=== PATIENT | female | born 1930 | race Caucasian/White ===

== ENCOUNTER 2017-07-31 16:51 | Inpatient (IN) | payer OTHER, MEDICARE ==
[~2017-07-31] VITALS: Ht 154.9 cm; Wt 61.2 kg
--- NOTE | ~2017-07-31 | HC ---
[facility] [place] [address] CONSULTATION Name: TRACIBRIGIDACASEY Room #: 446-P [facility] IN M.R.#: [id number] Admission: 07/31/17 Attend Phys: Linwood Jack DO Discharge: 08/05/17 Date of : [birth year] Report #: [id number] THIS REPORT FOR: //name// CC: Linwood Jack NO PCP DATE OF SERVICE: 08/02/2017 HISTORY OF PRESENT ILLNESS: The patient is an 87-year-old white female who was admitted after a fall. She apparently has had multiple noninjury falls. She has been diagnosed with urinary tract infection, started on IV antibiotics. She does have some weakness and apparently was choking on food. She was seen by speech therapy and they cleared her for a mechanical soft all liquid diet. She needs encouragement as far as eating. CT of the head was negative. There is a note of some dementia. Geriatrics is involved as well as Gastroenterology. We are seeing her in rehabilitation medicine consultation. PAST SURGICAL HISTORY: Includes colon surgery blockage with colon resection, appendectomy, cataract, left eye. ALLERGIES: No known drug allergies. MEDICATIONS: Please see the full medication listing. HABITS: No history of tobacco or alcohol abuse. SOCIAL HISTORY: Lives in an independent living apartment at [facility] with her . She used a cane to get around and notes she may warrant a walker. No steps. REVIEW OF SYSTEMS: No current complaints of chest pain, shortness of breath or abdominal discomfort. PHYSICAL EXAMINATION: GENERAL: An 87-year-old white female, in no obvious distress. VITAL SIGNS: Last recorded temperature 97.8, pulse 60, respirations 18, blood pressure 175/54. NEUROLOGIC: She is alert and oriented, but tends to defer to her for more complex questions. Facies are symmetric. She has functional range of motion of both upper extremities with strength grade 4-/5. DTRs are trace to 1. Lower extremities functional range of motion with strength grade 4-/5. DTRs are trace to 1. She is able to sit to stand with contact guard and ambulated 250 feet contact guard with a front-wheeled walker. ASSESSMENT: An 87-year-old white female with the following problem list: 1. Generalized weakness. [address] [address] CONSULTATION Name: CASEY KLEIN Room #: 446-P [facility] IN M.R.#: [id number] Admission: 07/31/17 Attend Phys: Linwood Jack DO Discharge: 08/05/17 Date of : [birth year] Report #: [id number] 2. Urinary tract infection. 3. Dehydration. 4. History of falls. These sound like mechanical falls and contributory by her dehydration, UTI, and generalized weakness. 5. History of dementia. PLAN: I do not see that she would meet criteria for an acute [address] [place] [address] inpatient rehabilitation stay. Would agree with going to the residential facility at [facility] as is being considered. Thank you for asking us to assist in this patient's care. <ELECTRONICALLY SIGNED> By: Gentry Prado MD 08/13/17 1030 1548 0243 Gentry Prado MD /nt
--- NOTE | ~2017-07-31 | EKG ---
[place] [address] 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
[~2017-07-31 16:51] MED LIST: CIPROFLOXACIN500 M1 PO; NORCO 5-325 TA1 EACH PO
[2017-07-31 16:52] VITALS: BP 132/45
[2017-07-31] MEDS ORDERED: CARVEDILOL6.25 MG (16:56)
[2017-07-31] MEDS ORDERED: TOVIAZ4 M1 PO (16:56)
[2017-07-31] MEDS ORDERED: SIMVASTATIN40 MG PO (16:56)
[2017-07-31] MEDS ORDERED: LISINOPRIL5 MG PO (16:56)
[2017-07-31] MEDS ORDERED: LASIX 40 MG TAB40 M2 PO (16:56)
[2017-07-31] MEDS ORDERED: RAZADYNE4 MG PO (16:57)
[2017-07-31 17:10] LABS: HEMATOCRIT 42.2 % (37.0-47.0); HEMOGLOBIN 14.4 gm/dL (12.0-15.0); MCH 31.7 pg (26.0-34.0); MCHC 34.1 g/dL (28.0-37.0); MCV 93.1 fL (80.0-100.0); PLATELET COUNT 180 thou/uL (150-400); RBC 4.54 mil/uL (4.20-5.00); RDW 13.6 % (10.5-14.5); WBC 9.1 thou/uL (4.0-11.0)
[2017-07-31 17:19] LABS: ANION GAP 11 mmol/L (7-16); BUN 38 mg/dL (7-18); CALCIUM 10.2 mg/dL (8.5-10.1); CHLORIDE 105 mmol/L (98-107); CO2 25 mmol/L (21-32); CREATININE 1.6 mg/dL (0.6-1.0); GLUCOSE 144 mg/dL (74-106); POTASSIUM 4.3 mmol/L (3.5-5.1); SODIUM 141 mmol/L (136-145)
[2017-07-31 17:27] LABS: ALBUMIN 3.7 g/dL (3.4-5.0); MAGNESIUM 2.2 mg/dL (1.8-2.4); SGOT 22 U/L (15-37); SGPT 30 U/L (30-65); TOTAL BILIRUBIN 0.3 mg/dL (<0.1-1.0); TOTAL PROTEIN 7.4 g/dL (6.4-8.2); TROPONIN-I < 0.04 ng/mL (<0.06)
[2017-07-31 17:35] LABS: ABSOLUTE NEUTROPHILS 5.2 thou/uL (1.4-8.2); ANISOCYTOSIS 1+; POLYCHROMASIA OCCASIONAL
[2017-07-31 18:31] LABS: URINE BILIRUBIN NEGATIVE (Negative); URINE BLOOD NEGATIVE (Negative); URINE CLARITY CLEAR; URINE COLOR YELLOW; URINE GLUCOSE-RANDOM* NEGATIVE (Negative); URINE KETONES NEGATIVE (Negative); URINE LEUKOCYTES-REFLEX NEGATIVE (Negative); URINE NITRITE-REFLEX POSITIVE (Negative); URINE PROTEIN (DIPSTICK) NEGATIVE (Negative); URINE UROBILINOGEN 0.2 E.U./dl (0.2-1.0)
[2017-07-31 18:43] LABS: BACTERIA-REFLEX >30 Many /HPF (None Seen); SQUAMOUS 0-3 Few /LPF (0-3); URINE RBC None Seen /HPF (0-2); URINE WBC-REFLEX 0-5 Rare /HPF (0-5)
[2017-07-31 18:44] LABS: AMORPHOUS URATES Moderate /LPF (None Seen); HYALINE CASTS >10 Many /LPF (None Seen)
[2017-07-31 18:54] VITALS: BP 139/54
[2017-07-31 19:27] VITALS: BP 139/54
[2017-07-31 19:50] VITALS: BP 150/62
[2017-08-01 03:52] VITALS: BP 168/69
[2017-08-01 05:51] LABS: ABSOLUTE NEUTROPHILS 4.5 thou/uL (1.4-8.2); BASOPHILS 0.4 % (0.0-2.0); EOSINOPHILS 1.7 % (0.0-3.0); HEMATOCRIT 41.4 % (37.0-47.0); LYMPHOCYTES 24.3 % (24.0-44.0); MCH 31.5 pg (26.0-34.0); MCHC 33.8 g/dL (28.0-37.0); MCV 92.9 fL (80.0-100.0); MONOCYTES 11.6 % (1.0-8.0); PLATELET COUNT 169 thou/uL (150-400); RBC 4.46 mil/uL (4.20-5.00); RDW 13.2 % (10.5-14.5); WBC 7.3 thou/uL (4.0-11.0)
[2017-08-01 06:04] LABS: CALCIUM 9.6 mg/dL (8.5-10.1); CREATININE 1.2 mg/dL (0.6-1.0)
[2017-08-01 08:27] VITALS: BP 154/64
[2017-08-01 09:15] LABS: CHOLESTEROL 170 mg/dL (<200); HDL CHOLESTEROL 34 mg/dL (>40); LDL CHOLESTEROL 110 mg/dL (<100); PHOSPHORUS 3.5 mg/dL (2.5-4.9); TRIGLYCERIDE 132 mg/dL (<150); VLDL 26 mg/dL (<40)
[2017-08-01 16:17] VITALS: BP 179/62
[2017-08-01 21:19] VITALS: BP 167/67
[2017-08-02 03:55] VITALS: BP 169/68
[2017-08-02 05:18] LABS: ABSOLUTE NEUTROPHILS 5.1 thou/uL (1.4-8.2); BASOPHILS 0.3 % (0.0-2.0); EOSINOPHILS 0.5 % (0.0-3.0); HEMATOCRIT 40.7 % (37.0-47.0); HEMOGLOBIN 13.7 gm/dL (12.0-15.0); LYMPHOCYTES 26.7 % (24.0-44.0); MCH 31.2 pg (26.0-34.0); MCHC 33.6 g/dL (28.0-37.0); MCV 92.7 fL (80.0-100.0); MONOCYTES 11.5 % (1.0-8.0); PLATELET COUNT 177 thou/uL (150-400); WBC 8.4 thou/uL (4.0-11.0)
[2017-08-02 05:24] LABS: CALCIUM 9.3 mg/dL (8.5-10.1); CREATININE 1.1 mg/dL (0.6-1.0); POTASSIUM 3.6 mmol/L (3.5-5.1)
[2017-08-02 08:33] VITALS: BP 175/54
[2017-08-02 16:34] VITALS: BP 194/62
[2017-08-02 19:09] VITALS: BP 215/83
[2017-08-02 22:15] VITALS: BP 186/69
[2017-08-03 03:05] VITALS: BP 166/62
[2017-08-03 08:00] VITALS: BP 162/62
[2017-08-03 16:00] VITALS: BP 145/52
[2017-08-03 19:25] VITALS: BP 117/45
[2017-08-04 05:09] VITALS: BP 150/58
[2017-08-04 05:34] LABS: BASOPHILS 0.4 % (0.0-2.0); EOSINOPHILS 0.9 % (0.0-3.0); HEMATOCRIT 37.6 % (37.0-47.0); HEMOGLOBIN 12.6 gm/dL (12.0-15.0); LYMPHOCYTES 24.2 % (24.0-44.0); MCHC 33.5 g/dL (28.0-37.0); MCV 92.5 fL (80.0-100.0); MONOCYTES 6.5 % (1.0-8.0); PLATELET COUNT 162 thou/uL (150-400); RBC 4.06 mil/uL (4.20-5.00); RDW 12.9 % (10.5-14.5); WBC 13.3 thou/uL (4.0-11.0)
[2017-08-04 05:35] LABS: CREATININE 1.1 mg/dL (0.6-1.0); POTASSIUM 3.2 mmol/L (3.5-5.1)
[2017-08-04 08:00] VITALS: BP 172/50
[2017-08-04 16:00] VITALS: BP 171/42
[2017-08-04 21:38] VITALS: BP 177/51
[2017-08-05 03:18] VITALS: BP 186/73
[2017-08-05 05:32] LABS: ABSOLUTE NEUTROPHILS 7.1 thou/uL (1.4-8.2); BASOPHILS 0.5 % (0.0-2.0); EOSINOPHILS 1.5 % (0.0-3.0); HEMOGLOBIN 13.5 gm/dL (12.0-15.0); LYMPHOCYTES 24.6 % (24.0-44.0); MCH 31.2 pg (26.0-34.0); MCHC 33.7 g/dL (28.0-37.0); MCV 92.6 fL (80.0-100.0); MONOCYTES 8.2 % (1.0-8.0); PLATELET COUNT 182 thou/uL (150-400); POLYS 65.2 % (36.0-66.0); RBC 4.32 mil/uL (4.20-5.00)
[2017-08-05 05:42] LABS: CALCIUM 9.3 mg/dL (8.5-10.1); CREATININE 0.9 mg/dL (0.6-1.0); POTASSIUM 3.7 mmol/L (3.5-5.1)
[2017-08-05 08:00] VITALS: BP 198/61
[2017-08-05 09:18] VITALS: BP 186/73
[2017-08-05] MEDS ORDERED: ERGOCALCIF50000 UNIT PO (11:26)
[2017-08-05] MEDS ORDERED: CIPROFLOXACIN500 M1 PO ×2 (11:26→13:41)
[2017-08-05] MEDS ORDERED: SINEMET 10-1001 EAC1 PO (11:26)
[2017-08-05] MEDS ORDERED: SYNTHROID50 MCG PO (11:26)
[2017-08-05] MEDS ORDERED: B12INJ IM (11:26)
[2017-08-05] MEDS ORDERED: FEVERALL650 MG RECTAL (11:26)
== END 2017-08-05 14:45 | DRG 70 ==
LOC: ER 16:51 → 4S 19:27
PROVIDERS: Emergency Medicine; Family Medicine; Registered Nurse
DX: G93.40 Encephalopathy, unspecified (principal); N17.0 Acute kidney failure with tubular necrosis; N39.0 Urinary tract infection, site not specified; I10 Essential (primary) hypertension; E86.0 Dehydration; F03.90 Unspecified dementia, unspecified severity, without behavioral disturbance, psychotic disturbance, mood disturbance, and anxiety; M62.84 Sarcopenia; E03.9 Hypothyroidism, unspecified; R13.10 Dysphagia, unspecified; W18.30XA Fall on same level, unspecified, initial encounter; Y93.89 Activity, other specified; Y92.89 Other specified places as the place of occurrence of the external cause; Y99.8 Other external cause status; Z90.49 Acquired absence of other specified parts of digestive tract; Z98.42 Cataract extraction status, left eye; Z79.899 Other long term (current) drug therapy
CPT/HCPCS: 10100

== ENCOUNTER 2017-09-27 12:28 | Emergency (ER) | payer OTHER, MEDICARE ==
[~2017-09-27] VITALS: Ht 152.4 cm; Wt 59.0 kg
--- NOTE | ~2017-09-27 | EKG ---
[address] [place] [address] ELECTROCARDIOGRAM REPORT Name: TRACIBRIGIDACASEY Room #: [facility]#: [id number] Admission: 09/27/17 Attend Phys: Discharge: 09/27/17 Date of : [birth year] Report #: [id number] THIS REPORT FOR: //name// [facility] ED Test Date: 2017-09-27 Test Time: 13:35:17 Pat Name: CASEY KLEIN Department: Room: Gender: F [employer]ing [employer] Operator: as : 1930 Requested By: Ryley Cruz Order Number: [id number] MD: Lc Mejía Measurements Intervals [place] Rate: 60 P: 33 AK: 193 QRS: -36 QRSD: 156 T: 77 QT: 525 QTc: 525 Interpretive Statements Sinus rhythm Left bundle branch block Compared to ECG 07/31/2017 17:01:48 No significant changes Electronically Signed On 09-27-2017 16:55:23 CDT by Lc Mejía [email or web address] <ELECTRONICALLY SIGNED> By: Lc Mejía MD, [facility] 09/27/17 1655 1335 Lc Mejía MD, FACC /EPI
[~2017-09-27 12:28] MED LIST changes: +B12INJ IM; +CARVEDILOL6.25 MG; +ERGOCALCIF50000 UNIT PO; +FEVERALL650 MG RECTAL; +LASIX 40 MG TAB40 M2 PO; +LISINOPRIL5 MG PO; +RAZADYNE4 MG PO; +SIMVASTATIN40 MG PO; +SINEMET 10-1001 EAC1 PO; +SYNTHROID50 MCG PO; +TOVIAZ4 M1 PO
[2017-09-27 13:48] LABS: BASOPHILS 1.3 % (0.0-2.0); EOSINOPHILS 0.7 % (0.0-3.0); HEMOGLOBIN 13.6 gm/dL (12.0-15.0); LYMPHOCYTES 41.6 % (24.0-44.0); MCH 31.2 pg (26.0-34.0); MCHC 33.9 g/dL (28.0-37.0); MONOCYTES 8.2 % (1.0-8.0); PLATELET COUNT 169 thou/uL (150-400); POLYS 48.2 % (36.0-66.0); RBC 4.34 mil/uL (4.20-5.00); RDW 13.1 % (10.5-14.5); WBC 10.3 thou/uL (4.0-11.0)
[2017-09-27 13:53] LABS: ANION GAP 8 mmol/L (7-16); BUN 26 mg/dL (7-18); CALCIUM 9.4 mg/dL (8.5-10.1); CHLORIDE 106 mmol/L (98-107); CO2 24 mmol/L (21-32); CREATININE 1.1 mg/dL (0.6-1.0); GLUCOSE 104 mg/dL (74-106); POTASSIUM 5.1 mmol/L (3.5-5.1); SODIUM 138 mmol/L (136-145)
[2017-09-27 14:03] LABS: TROPONIN-I < 0.04 ng/mL (<0.06)
== END 2017-09-27 14:42 | disposition home or self-care (01) ==
LOC: ER 12:28
PROVIDERS: Physician Assistant
DX: I95.9 Hypotension, unspecified (principal); Z90.49 Acquired absence of other specified parts of digestive tract

== ENCOUNTER 2018-02-14 14:24 | Inpatient (IN) | payer OTHER, MEDICARE ==
[~2018-02-14] VITALS: Ht 154.9 cm; Wt 64.5 kg
--- NOTE | ~2018-02-14 | HC ---
[facility] [place] [address] CONSULTATION Name: CASEY KLEIN Room #: 430-P [facility] IN M.R.#: [id number] Admission: 02/14/18 Attend Phys: Karthikeyan Coley MD Discharge: 02/20/18 Date of : [birth year] Report #: [id number] THIS REPORT FOR: //name// CC: Rakan Coley DATE OF SERVICE: 02/17/2018 HISTORY OF PRESENT ILLNESS: The patient is an 87-year-old white female with history of Parkinson's disease, on Sinemet; premorbid ambulator, utilized a cane, who slipped and fell onto the left side of her chest and pelvis. She was admitted, diagnosed with a left pubic ramus fracture, nondisplaced superior pubic ramus, is allowed weightbearing as tolerated as per Dr. Steven in Orthopedics. 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 She was also diagnosed with urinary tract infection. We are seeing her in rehabilitation medicine consultation. PAST MEDICAL HISTORY: Includes pulmonary hypertension and CHF. PAST SURGICAL HISTORY: She had prior colon surgery for colon resection. She had an appendectomy. She has cataract, left eye. MEDICATIONS: Please see the full medication listing. This is noted to include vitamins, herbals, and supplements. ALLERGIES: No known drug allergies. SOCIAL HISTORY: She lives in an apartment at [facility] with her , he has still been working. She is noted to utilize a cane. REVIEW OF SYSTEMS: She did not offer any current complaints of chest pain, shortness of breath, or abdominal discomfort. She is noted to have significant pain complaints regarding the left pelvic area. PHYSICAL EXAMINATION: GENERAL: An 87-year-old white female, she is sleepy, in no obvious distress. VITAL SIGNS: Last recorded temperature is 99.1, pulse is 74, respirations are 18, and blood pressure is 134/57. The patient is sleepy as noted above. NEUROLOGIC: Facies appeared symmetric. Functional range of motion of both upper extremities. Lower extremities, no focal calf swelling. Tone appeared to be intact. She has discomfort as expected. She is moving the left lower extremity. She was noted to have anticipatory pain by physical therapy and severe pain in left groin with any movement. She has been unable to sit at the edge of the bed, yet in therapy. ASSESSMENT: An 87-year-old white female with the following problem list: [address] [address] CONSULTATION Name: CASEY KLEIN Anjelica Room #: 430-P [facility] IN .R.#: [id number] Admission: 02/14/18 Attend Phys: Karthikeyan Coley MD Discharge: 02/20/18 Date of : [birth year] Report #: [id number] 1. Left pubic ramus fracture, nondisplaced with limited tolerance. 2. History of Parkinson's disease, on Sinemet. 3. Urinary tract infection. 4. Hypertension. 5. Pulmonary hypertension. 6. Overactive bladder. 7. Deep venous thrombosis prophylaxis. PLAN: The patient does not have the tolerance for an acute [address] [place] [address] inpatient rehabilitation stay. Would agree with [facility] facility transfer when medically cleared. desires for her to go to the [facility] nursing [facility]. Thank you for asking us to assist in this patient's care. <ELECTRONICALLY SIGNED> By: Gentry Prado MD 02/28/18 1220 1208 0042 Gentry Prado MD /[facility]
--- NOTE | ~2018-02-14 | HC ---
[facility] [place] [address] CONSULTATION Name: TRACIBRIGIDACASEY Room #: 432-P [facility] IN M.R.#: [id number] Admission: 02/14/18 Attend Phys: Karthikeyan Coley MD Discharge: Date of : [birth year] Report #: [id number] THIS REPORT FOR: //name// CC: Rakan Coley DATE OF SERVICE: 02/15/2018 CHIEF COMPLAINT: Left pubic ramus fracture. HISTORY OF PRESENT ILLNESS: This frail 87-year-old female has been ambulatory, but fell injuring her left chest wall and left hip. X-rays confirm a nondisplaced fracture at the superior pubic ramus. There is moderate degenerative arthritis of the left hip, but no evidence of a new proximal femur fracture. At the time of my evaluation, she is somewhat anxious and mildly confused. She notes some discomfort along the left chest wall and left flank, but most discomfort about the left hip. She has limited range of motion of left hip due to her subjective complaints. There is no obvious shortening or rotational deformity. X-rays of the pelvis reveal a nondisplaced fracture at the superior pubic ramus entering the medial aspect of the acetabulum. There is no significant displacement of the acetabular joint surface. There is degenerative change at the joint, but no evidence of a proximal femur fracture. IMPRESSION: In general summary, this patient has a stable periacetabular superior pubic ramus fracture. I feel she can be mobilized and can bear weight as comfort allows. I expect she will have difficulty given her age and frail state. Pending this, she may be able to be discharged home with assistance or may require an extended care facility for more extensive assistance. I would not anticipate the need for any surgical intervention. Thank you for allowing me to participate in her care. <ELECTRONICALLY SIGNED> By: Gentry Steven MD 02/18/18 1241 1202 Gentry Steven MD /nt
[2018-02-14 14:26] VITALS: BP 188/72
[2018-02-14 15:07] LABS: HEMATOCRIT 37.2 % (37.0-47.0); HEMOGLOBIN 12.9 gm/dL (12.0-15.0); MCHC 34.7 g/dL (28.0-37.0); MCV 92.1 fL (80.0-100.0); RBC 4.04 mil/uL (4.20-5.00); RDW 12.6 % (10.5-14.5); WBC 9.9 thou/uL (4.0-11.0)
[2018-02-14 15:14] LABS: CALCIUM 10.2 mg/dL (8.5-10.1); CREATININE 1.1 mg/dL (0.6-1.0); POTASSIUM 4.4 mmol/L (3.5-5.1)
[2018-02-14 15:44] LABS: URINE BILIRUBIN NEGATIVE (Negative); URINE BLOOD 2+ (Negative); URINE CLARITY CLOUDY; URINE COLOR BROWN; URINE GLUCOSE-RANDOM* NEGATIVE (Negative); URINE KETONES NEGATIVE (Negative); URINE NITRITE-REFLEX NEGATIVE (Negative); URINE PROTEIN (DIPSTICK) NEGATIVE (Negative); URINE SPECIFIC GRAVITY 1.015 (1.005-1.035); URINE UROBILINOGEN 0.2 E.U./dl (0.2-1.0)
[2018-02-14 15:45] LABS: URINE LEUKOCYTES-REFLEX 1+ (Negative)
[2018-02-14 15:59] LABS: SQUAMOUS 4-10 Moderate /LPF (0-3)
[2018-02-14 16:00] LABS: CALCIUM OXALATE >10 Many /LPF (None Seen); CASTS None Seen /LPF (None Seen); URIC ACID CRYSTALS 4-10 Moderate /LPF (None Seen); URINE RBC 3-10 Few /HPF (0-2); URINE WBC-REFLEX 6-15 Few /HPF (0-5); YEAST-REFLEX Present (None Seen)
[2018-02-14 16:43] VITALS: BP 196/66
[2018-02-14 17:17] VITALS: BP 191/67
[2018-02-14 19:48] LABS: MAGNESIUM 2.1 mg/dL (1.8-2.4)
[2018-02-14 20:40] VITALS: BP 210/92
[2018-02-15 04:16] VITALS: BP 192/77
[2018-02-15 05:52] LABS: HEMATOCRIT 39.6 % (37.0-47.0); HEMOGLOBIN 13.8 gm/dL (12.0-15.0); MCH 32.3 pg (26.0-34.0); MCHC 34.9 g/dL (28.0-37.0); MCV 92.5 fL (80.0-100.0); RBC 4.28 mil/uL (4.20-5.00); WBC 8.9 thou/uL (4.0-11.0)
[2018-02-15 06:05] LABS: CALCIUM 10.6 mg/dL (8.5-10.1); CREATININE 1.1 mg/dL (0.6-1.0); POTASSIUM 3.8 mmol/L (3.5-5.1)
[2018-02-15 06:38] LABS: TSH 3.755 uIU/mL (0.358-3.740)
[2018-02-15 07:45] VITALS: BP 197/65
[2018-02-15] MEDS ORDERED: SIMVASTATIN40 MG PO (10:46)
[2018-02-15] MEDS ORDERED: OXYBUTYNIN 5 MG5 M2 PO (10:47)
[2018-02-15 12:10] VITALS: BP 152/43
[2018-02-15 16:55] VITALS: BP 174/77
[2018-02-16] VITALS: BP 166/69
[2018-02-16 06:00] VITALS: BP 165/57
[2018-02-16 16:40] VITALS: BP 168/55
[2018-02-16 20:08] VITALS: BP 152/53
[2018-02-17 08:00] VITALS: BP 134/57
[2018-02-17 13:16] LABS: CALCIUM 10.6 mg/dL (8.5-10.1); CREATININE 1.3 mg/dL (0.6-1.0)
[2018-02-17 16:10] VITALS: BP 146/57
[2018-02-17 19:37] VITALS: BP 189/63
[2018-02-18 00:35] VITALS: BP 152/51
[2018-02-18 05:49] LABS: CALCIUM 11.1 mg/dL (8.5-10.1); CREATININE 1.4 mg/dL (0.6-1.0); POTASSIUM 4.4 mmol/L (3.5-5.1)
[2018-02-18 05:50] LABS: BASOPHILS 0.2 % (0.0-2.0); HEMATOCRIT 38.8 % (37.0-47.0); LYMPHOCYTES 20.6 % (24.0-44.0); MCH 31.3 pg (26.0-34.0); MCHC 33.6 g/dL (28.0-37.0); MCV 93.3 fL (80.0-100.0); MONOCYTES 9.7 % (1.0-8.0); PLATELET COUNT 185 thou/uL (150-400); POLYS 68.5 % (36.0-66.0); RBC 4.16 mil/uL (4.20-5.00); WBC 8.7 thou/uL (4.0-11.0)
[2018-02-18 07:44] VITALS: BP 124/47
[2018-02-18 13:28] LABS: URINE BILIRUBIN NEGATIVE (Negative); URINE BLOOD NEGATIVE (Negative); URINE CLARITY CLEAR; URINE COLOR YELLOW; URINE GLUCOSE-RANDOM* NEGATIVE (Negative); URINE KETONES NEGATIVE (Negative); URINE LEUKOCYTES-REFLEX NEGATIVE (Negative); URINE NITRITE-REFLEX NEGATIVE (Negative); URINE PROTEIN (DIPSTICK) NEGATIVE (Negative); URINE SPECIFIC GRAVITY 1.025 (1.005-1.035); URINE UROBILINOGEN 0.2 E.U./dl (0.2-1.0)
[2018-02-18 17:51] VITALS: BP 124/47
[2018-02-18 21:05] VITALS: BP 159/63
[2018-02-19 04:07] LABS: CALCIUM 10.4 mg/dL (8.5-10.1); CREATININE 1.2 mg/dL (0.6-1.0); POTASSIUM 4.4 mmol/L (3.5-5.1)
[2018-02-19 05:05] LABS: ABSOLUTE NEUTROPHILS 7.8 thou/uL (1.4-8.2); BASOPHILS 0.3 % (0.0-2.0); EOSINOPHILS 1.3 % (0.0-3.0); HEMATOCRIT 37.9 % (37.0-47.0); MCH 31.8 pg (26.0-34.0); MCHC 34.3 g/dL (28.0-37.0); MCV 92.7 fL (80.0-100.0); MONOCYTES 8.8 % (1.0-8.0); PLATELET COUNT 195 thou/uL (150-400); POLYS 70.6 % (36.0-66.0); RBC 4.09 mil/uL (4.20-5.00); RDW 12.7 % (10.5-14.5)
[2018-02-19 07:36] VITALS: BP 140/56
[2018-02-19 08:26] LABS: ANISOCYTOSIS SLIGHT; LARGE PLATELETS FEW
[2018-02-19 15:57] VITALS: BP 152/70
[2018-02-19 19:27] VITALS: BP 142/47
[2018-02-20 04:13] VITALS: BP 172/56
[2018-02-20 06:21] LABS: ABSOLUTE NEUTROPHILS 7.1 thou/uL (1.4-8.2); BASOPHILS 0.5 % (0.0-2.0); EOSINOPHILS 1.6 % (0.0-3.0); HEMATOCRIT 38.7 % (37.0-47.0); HEMOGLOBIN 13.5 gm/dL (12.0-15.0); LYMPHOCYTES 19.7 % (24.0-44.0); MCH 32.3 pg (26.0-34.0); MCHC 34.7 g/dL (28.0-37.0); MCV 92.8 fL (80.0-100.0); MONOCYTES 9.5 % (1.0-8.0); PLATELET COUNT 205 thou/uL (150-400); POLYS 68.7 % (36.0-66.0); RBC 4.17 mil/uL (4.20-5.00); WBC 10.3 thou/uL (4.0-11.0)
[2018-02-20 06:33] LABS: CALCIUM 10.9 mg/dL (8.5-10.1); CREATININE 1.1 mg/dL (0.6-1.0); POTASSIUM 4.1 mmol/L (3.5-5.1)
[2018-02-20 08:27] VITALS: BP 156/106
[2018-02-20] MEDS ORDERED: SENNA8.6 MG PO (13:24)
[2018-02-20] MEDS ORDERED: BISAC-EVAC10 MG RECTAL (13:24)
[2018-02-20] MEDS ORDERED: COLACE 100 MG100 MG PO (13:24)
[2018-02-20] MEDS ORDERED: MILK OF MA2400 MG/10 PO (13:24)
[2018-02-20] MEDS ORDERED: CIPRO500 MG PO (13:24)
[2018-02-20] MEDS ORDERED: ULTRACET TABLET1 TAB PO (13:32)
== END 2018-02-20 16:14 | DRG 542 ==
LOC: ER 14:24 → EROBS 16:12 → 4E 16:12
PROVIDERS: Emergency Medicine; Hospitalist; Nurse Practitioner Family
DX: M80.00XA Age-related osteoporosis with current pathological fracture, unspecified site, initial encounter for fracture (principal); N17.0 Acute kidney failure with tubular necrosis; G92 Toxic encephalopathy; N39.0 Urinary tract infection, site not specified; S32.592A Other specified fracture of left pubis, initial encounter for closed fracture; I50.9 Heart failure, unspecified; I27.20 Pulmonary hypertension, unspecified; G20 Parkinson's disease; N32.81 Overactive bladder; E03.9 Hypothyroidism, unspecified; I11.0 Hypertensive heart disease with heart failure; E86.0 Dehydration; M62.84 Sarcopenia; E83.52 Hypercalcemia; R13.10 Dysphagia, unspecified; E78.5 Hyperlipidemia, unspecified; F03.90 Unspecified dementia, unspecified severity, without behavioral disturbance, psychotic disturbance, mood disturbance, and anxiety; K59.00 Constipation, unspecified; R33.9 Retention of urine, unspecified; Z98.42 Cataract extraction status, left eye; Z90.49 Acquired absence of other specified parts of digestive tract; Z85.51 Personal history of malignant neoplasm of bladder; Z47.89 Encounter for other orthopedic aftercare; Z23 Encounter for immunization; W18.39XA Other fall on same level, initial encounter; Y93.89 Activity, other specified; Y92.89 Other specified places as the place of occurrence of the external cause; Y99.8 Other external cause status
CPT/HCPCS: 10084